=== PATIENT | male | born 1950 | race Caucasian/White ===

== ENCOUNTER 2018-09-07 09:42 | Outpatient (CLI) | payer MEDICARE ==
[2018-09-07] MEDS ORDERED: Sodium Chloride 0.9% 15 ML NEB ONE (21:28)
--- NOTE | 2018-09-07 22:53 | HP ---
HISTORY OF PRESENT ILLNESS: Mr. Jono Boyd is a very pleasant 67-year-old gentleman, who presents [facility] for evaluation of a wound of the right medial ankle subsequent to right hindfoot triple arthrodesis, Achilles lengthening, and peroneal tenotomies on 07/26/[address] Hinojosa. The patient is accompanied by his today. He states that immediately postoperatively he was placed into a soft cast. He states that he was then placed into 2 "regular" casts. He states that presently he is utilizing an offloading boot as per Orthopedic Surgery. The patient states that his sutures were discontinued on 08/29/2018. The patient's states that she has been cleansing the wound with Hibiclens followed by the application of Betadine to the wound with swabs. The patient was referred to the Wound Center by Dr. Hinojosa on 09/04/2018. PAST MEDICAL HISTORY: 1. Leukemia. 2. Hypertension. 3. Coronary artery disease. 4. History of TIA. 5. History of seizures. PAST SURGICAL HISTORY: 1. Coronary artery bypass grafting. 2. Right hindfoot triple arthrodesis, Achilles lengthening, and peroneal tenotomies as per HPI. 3. Left knee arthroscopic surgery x2. 4. Cholecystectomy. MEDICATIONS: 1. Atorvastatin. 2. Plavix. 3. Lamotrigine. 4. Clonidine. 5. Lasix. 6. Zoloft. 7. Valtrex. ALLERGIES: PENICILLIN. SOCIAL HISTORY: Social history is significant for tobacco use of 2-3 packs of cigarettes per day for 25 years. The patient states that he stopped smoking in 2006. Social history is also significant for only the occasional consumption of alcohol. FAMILY HISTORY: Family history is significant for coronary artery disease. The patient states that his father, grandfather, and grandmother were all diagnosed with coronary artery disease. Family history is also significant for diabetes mellitus, the patient states that his father was diagnosed with diabetes mellitus. PHYSICAL EXAMINATION: VITAL SIGNS: Temperature 98.2, pulse 59, respirations 17, blood pressure 146/71. GENERAL: A 67-year-old gentleman, lying on stretcher in examination room, in no acute distress. HEENT: Normocephalic, atraumatic. NECK: No nuchal rigidity. CHEST: Clear to auscultation. CV: Regular rate and rhythm. ABDOMEN: Soft. EXTREMITIES: A wound of the right medial ankle is present which measures approximately 10.8 x 1.5 cm. The wound bed is entirely covered by dry, stable eschar. No purulent drainage is associated with the wound. No cellulitis of the right ankle is appreciated. No maceration of the skin of the periwound is noted. A dorsalis pedis pulse and a posterior tibial pulse are both palpable on the right. No significant edema of the right foot or ankle is appreciated on exam today. NEURO: Grossly nonfocal. ASSESSMENT AND PLAN: 1. Wound of right medial ankle subsequent to right hindfoot triple arthrodesis, Achilles lengthening, and peroneal tenotomies on 07/26/2018. The patient states he has an appointment at [facility] next week. He states he may undergo bone marrow aspiration at this time. The patient states he has been in remission from leukemia for approximately 1-2 years. Dressing changes of Xeroform, gauze, and an Manuel bandage are to be performed on a daily basis after cleansing and irrigation. The patient's will be assisting Mr. Boyd with his dressing changes. No antibiotics will be prescribed today based upon the appearance of the wound. I will see Mr. Boyd again in 1 week. The patient and his understand and are in agreement with the preceding treatment plan. 2. Leukemia. 3. Hypertension. 4. Coronary artery disease. 5. History of transient ischemic attack. 6. History of seizures. Job ID: [id number]
== END 2018-09-07 09:43 | disposition home or self-care (01) ==
LOC: WCC 09:42
PROVIDERS: ATTEND Family Medicine
DX: T81.89XD Other complications of procedures, not elsewhere classified, subsequent encounter (principal); C95.90 Leukemia, unspecified not having achieved remission; I10 Essential (primary) hypertension; I25.10 Atherosclerotic heart disease of native coronary artery without angina pectoris; Z86.73 Personal history of transient ischemic attack (TIA), and cerebral infarction without residual deficits
CPT/HCPCS: A4218

== ENCOUNTER 2018-09-25 10:24 | Outpatient (CLI) | payer MEDICARE ==
--- NOTE | 2018-09-25 11:41 | PRG ---
DATE OF SERVICE: 09/25/2018 HISTORY: Mr. Jono Boyd is a very pleasant 68-year-old gentleman, who presents to the [facility] for evaluation of a wound of the right medial ankle subsequent to right hindfoot triple arthrodesis, Achilles lengthening, and peroneal tenotomies on 07/26/[address] Hinojosa. The patient is again accompanied by his today. The patient previously stated that immediately postoperatively, he was placed into a soft cast. He stated that he was then placed in to "regular" cast. At the time of his initial visit to the Wound Center, the patient stated that he had been utilizing an offloading boot as per Orthopedic Surgery. The patient stated that his sutures were discontinued on 08/29/2018. At the time of the patient's initial visit to the Wound Center, the patient's stated that she had been cleansing the wound with Hibiclens followed by the application of Betadine to the wound with swabs. The patient was referred to the Wound Center by Dr. Hinojosa on 09/04/2018. After being seen in the Wound Center, the patient was placed on dressing changes of Xeroform gauze, Kerlix, and an Manuel bandage. The patient has been receiving these dressing changes on a daily basis after cleansing and irrigation with the assistance of the patient's . PHYSICAL EXAMINATION: VITAL SIGNS: Temperature 98.1, pulse 42, blood pressure 122/60. EXTREMITIES: A wound of the right medial ankle is present which measures approximately 10.4 x 1.3 cm. The dimensions of the wound at the time of the patient's last visit were approximately 10.8 x 1.5 cm. No purulent drainage is associated with the wound. No cellulitis of the right ankle is appreciated. No maceration of the skin of the periwound is noted. No significant edema of the right foot or ankle is appreciated on exam today. ASSESSMENT AND PLAN: 1. Wound of right medial ankle subsequent to right hindfoot triple arthrodesis, Achilles lengthening, and peroneal tenotomies on 07/26/2018. Dressing changes of Xeroform gauze, Kerlix, and an Manuel bandage will be continued on a daily basis after cleansing and irrigation. The patient's will continue to assist Mr. Boyd with his dressing changes. I will see Mr. Boyd again in 2 weeks. 2. Leukemia. 3. Hypertension. 4. Coronary artery disease. 5. History of transient ischemic attack. 6. History of seizures. Job ID: [id number]
[2018-09-25] MEDS ORDERED: Lidocaine 2% 11 ML SYR ONE (19:09)
[2018-09-25] MEDS ORDERED: Sodium Chloride 0.9% 15 ML NEB ONE (19:09)
== END 2018-09-25 10:25 | disposition home or self-care (01) ==
LOC: WCC 10:24
PROVIDERS: ATTEND Family Medicine
DX: T81.89XD Other complications of procedures, not elsewhere classified, subsequent encounter (principal); I10 Essential (primary) hypertension; I25.10 Atherosclerotic heart disease of native coronary artery without angina pectoris; C95.90 Leukemia, unspecified not having achieved remission; Z86.73 Personal history of transient ischemic attack (TIA), and cerebral infarction without residual deficits; Z86.69 Personal history of other diseases of the nervous system and sense organs
CPT/HCPCS: 97602; A4218

== ENCOUNTER 2018-10-09 10:32 | Outpatient (CLI) | payer MEDICARE ==
--- NOTE | 2018-10-09 11:24 | PRG ---
DATE OF SERVICE: 10/09/2018 HISTORY: Mr. Jono Boyd is a very pleasant 68-year-old gentleman, who presents to the [facility] Center for evaluation of a wound of the right medial ankle subsequent to right hindfoot triple arthrodesis, Achilles lengthening, and peroneal tenotomies on 07/26/2018, by Dr. Hinojosa. The patient is again accompanied by his today. Previously, the patient stated that immediately postoperatively who was placed into a soft cast. He stated that he was then placed into a "regular" cast. At the time of his initial visit to the Wound Center, the patient stated that he had been utilizing an offloading boot as per Orthopedic Surgery. The patient stated that his sutures were discontinued on 08/29/2018. At the time of the patient's initial visit to the Wound Center, the patient's stated that she had been cleansing the wound with Hibiclens followed by the application of Betadine to the wound with swabs. The patient was referred to the Wound Center by Dr. Hinojosa on 09/04/2018. After being seen in the Wound Center, the patient was placed on dressing changes of Xeroform gauze, Kerlix, and an Manuel bandage. The patient has been receiving these dressing changes on a daily basis after cleansing and irrigation with the assistance of the patient's . PHYSICAL EXAMINATION: VITAL SIGNS: Temperature 98.0, pulse 53, respirations 18, and blood pressure 140/80. EXTREMITIES: The wound of the right medial ankle has divided into 2 wounds, which measure approximately 2.5 x 0.5 cm and 1.8 x 0.5 cm. Granulation tissue is present within the margins of both wounds. No purulent drainage is associated with either wound. No erythema of the skin surrounding either wound is present. No maceration of the skin of the periwound of either wound is noted. A dorsalis pedis pulse is palpable on the right. No significant edema of the right foot or ankle is appreciated on exam today. ASSESSMENT AND PLAN: 1. Wound of right medial ankle subsequent to right hindfoot triple arthrodesis, Achilles lengthening, and peroneal tenotomies on 07/26/2018. As stated above, the wound has divided into 2 wounds. Dressing changes of Xeroform gauze, Kerlix, and an Manuel bandage will be continued on a daily basis after cleansing and irrigation. The patient's will continue to assist Mr. Boyd with his dressing changes. I will see Mr. Boyd again in 2 weeks if the wounds are still present at this time. 2. Leukemia. 3. Hypertension. 4. Coronary artery disease. 5. History of transient ischemic attack. 6. History of seizures. Job ID: [id number]
[2018-10-09] MEDS ORDERED: Sodium Chloride 0.9% 15 ML NEB ONE (18:00)
== END 2018-10-09 10:33 | disposition home or self-care (01) ==
LOC: WCC 10:32
PROVIDERS: ATTEND Family Medicine
DX: S91.001D Unspecified open wound, right ankle, subsequent encounter (principal); C95.90 Leukemia, unspecified not having achieved remission; I10 Essential (primary) hypertension; Z86.73 Personal history of transient ischemic attack (TIA), and cerebral infarction without residual deficits; I25.10 Atherosclerotic heart disease of native coronary artery without angina pectoris; Z86.69 Personal history of other diseases of the nervous system and sense organs
CPT/HCPCS: A4218

== ENCOUNTER 2018-10-18 15:23 | Emergency (ER) | payer MEDICARE ==
[2018-10-18 16:51] LABS: #Basophils 0.1 thou/uL (0.0-0.2); #Eosinphils 0.1 thou/uL (0.0-0.7); #Lymphocytes 0.4 thou/uL (1.20-3.40); #Monocytes 0.4 thou/uL (0.11-0.59); #Neutrophils 8.1 thou/uL (1.40-6.50); %Basophils 0.7 % (0.0-1.0); %Eosinophils 0.7 % (0.0-10.0); %Lymphocytes 4.1 % (21.0-51.0); %Monocytes 4.6 % (0.0-10.0); %Neutrophils 89.9 % (42.0-75.0); Hemoglobin 14.4 g/dL (14.0-18.0); Mean Corpuscular HGB CONC 33.7 g/dL (32.0-36.0); Mean Corpuscular Hemoglobin 32.2 pg (27.0-31.0); Mean Corpuscular Volume 95.6 fL (78.0-98.0); Mean Platelet Volume 6.1 fL (7.4-10.4); Platelet Count 212 thou/uL (130-400); RBC Distribution Width 14.2 % (11.5-14.5); Red Blood Cell (RBC) Count 4.47 mill/uL (4.70-6.10)
--- NOTE | 2018-10-18 16:58 | CT ---
CT maxillofacial noncontrast: HISTORY: 68-year-old male status post acute facial trauma FINDINGS: There is a subtle, broad left orbital floor fracture with minimal, approximately 1 to 2 mm of inferio r displacement of the orbital floor. Between the left orbital floor and the inferior extraconal orbit, there is a thin layer of contusion. There is a large, contiguous superficial soft tissue hematoma anterior to the left maxilla, extending medially, laterally, superiorly, and inferiorly, including left preseptal periorbital soft tissues. There is no intraconal edema, hematoma or gas within the orbit. The bilateral globes are sym metrical and normal in shape. No radiopaque foreign body. Lamina papyracea, zygomatic arches, zygomas, maxilla, mandible, are intact. No air-fluid levels in the paranasal sinuses. Paranasal sinus es are essentially clear other than scattered small mucus retention cysts. IMPRESSION: 1. Acute, traumatic, minimally inferiorly displaced left orbital floor fracture. 2. Associated thin, mild layer of soft tissue contusion in the inferior extraconal space of the left orbit. 3. Large acute, traumatic soft tissue hematoma of the left face, including preseptal periorbital soft tissues and left cheek.
[2018-10-18] MEDS ORDERED: Morphine 4 MG/ML VIAL ONE (20:20)
[2018-10-18] MEDS ORDERED: Ondansetron PF 4 MG/2 ML Vial ONE ×2 (20:21)
== END 2018-10-18 21:25 | disposition short-term general hospital (02) ==
LOC: ERS 15:23
DX: S02.32XA Fracture of orbital floor, left side, initial encounter for closed fracture (principal); S01.81XA Laceration without foreign body of other part of head, initial encounter; F32.9 Major depressive disorder, single episode, unspecified; E78.5 Hyperlipidemia, unspecified; I10 Essential (primary) hypertension; Z87.891 Personal history of nicotine dependence; Z79.899 Other long term (current) drug therapy; W01.0XXA Fall on same level from slipping, tripping and stumbling without subsequent striking against object, initial encounter
CPT/HCPCS: 36415; 70486; 85025; 96374; 96375; J2270; J2405